=== PATIENT | male | born 1940 | race Hispanic/Latino ===

== ENCOUNTER 2018-06-22 08:04 | Observation (INO) | payer MEDICARE ==
[2018-06-20 11:38] LABS: BASOPHILS % 0.6 % (0.0-1.0); EOSINOPHILS # (AUTO) 0.4 (0.0-0.4); HEMATOCRIT 34.9 % (38.2-49.6); HEMOGLOBIN 10.4 g/dL (14.0-18.0); LYMPHOCYTES # (AUTO) 1.6 (1.0-3.2); LYMPHOCYTES % 22.4 % (18.0-39.1); MEAN CORPUSCULAR HEMOGLOBIN 24.5 pg (28-32); MEAN CORPUSCULAR HGB CONC 29.8 g/dL (31-35); MEAN CORPUSCULAR VOLUME 82.3 fL (81-99); MONOCYTES # (AUTO) 0.7 (0.2-0.8); NEUTROPHILS # (AUTO) 4.4 (2.1-6.9); NEUTROPHILS % 60.6 % (38.7-80.0); PLATELET COUNT 146 x10e3/uL (140-360); RED BLOOD COUNT 4.24 x10e6/uL (4.3-5.7); RED CELL DISTRIBUTION WIDTH 16.9 % (11.7-14.4)
[2018-06-20 11:57] LABS: ANION GAP 15.2 mmol/L (8-16); BLOOD UREA NITROGEN 15 mg/dL (7-26); BUN/CREATININE RATIO 17 (6-25); CALCIUM 9.3 mg/dL (8.4-10.2); CARBON DIOXIDE 22 mmol/L (22-29); CHLORIDE 108 mmol/L (98-107); CREATININE, SERUM 0.89 mg/dL (0.72-1.25); EST GLOMERULAR FILTRATION RATE > 60 ML/MIN (60-); GLUCOSE 95 mg/dL (74-118); POTASSIUM 4.2 mmol/L (3.5-5.1); SODIUM 141 mmol/L (136-145)
--- NOTE | 2018-06-20 12:08 | Diagnostic Imaging Report ---
EXAMINATION: CHEST 2 VIEWS INDICATION: Pre-admit COMPARISON: None FINDINGS: TUBES and LINES: None. LUNGS: Lungs are well inflated. Lungs are clear. There is no evidence of pneumonia or pulmonary edema. PLEURA: No pleural effusion or pneumothorax. HEART AND MEDIASTINUM: The cardiomediastinal silhouette is unremarkable. BONES AND SOFT TISSUES: No acute osseous lesion. Possible healed fracture deformity involving the left lateral tenth rib. Soft tissues are unremarkable. UPPER ABDOMEN: No free air under the diaphragm. There are cholecystectomy clips. IMPRESSION: No acute thoracic radiographic abnormality. Signed by: Dr. Tae Shah MD on 06/20/2018 12:04 PM
[~2018-06-22] VITALS: Ht 167.6 cm; Wt 74.0 kg
[~2018-06-22 08:04] MED LIST: FINASTERIDE5 MG PO; FLOMAX0.4 MG PO
[2018-06-22] MEDS ORDERED: GENTAMICIN 120MG/NS 100ML 100 ML ONE (08:50)
[2018-06-22] MEDS ORDERED: IOPAMIDOL 300MG/ML 50ML INFUS..BTL IV ONE (10:04)
[2018-06-22] MEDS ORDERED: FENTANYL CITRATE/PF 100MCG/2 ML INJ ONE ×2 (11:53→18:23)
[2018-06-22 13:15] VITALS: BP 142/73
[2018-06-22] MEDS ORDERED: ACETAMINOPHEN/CODEINE 300MG - 30MG TAB PO PRN (13:45)
[2018-06-22] MEDS: ONDANSETRON HCL INJ 2 MG/ML VIAL IV PRN ×2 (14:13→20:40)
[2018-06-22] MEDS ORDERED: DEXTROSE 5%/0.45% SOD CHL 1,000 ML IV ONE (14:15)
[2018-06-22 16:00] VITALS: BP 116/69
[2018-06-22] MEDS: TRIMETHOPRIM/SULFAMETHOXAZOLE 160-800 MG TAB PO SCH ×2 (16:56→20:27)
[2018-06-22] MEDS ORDERED: LIDOCAINE HCL 2% LOCAL INJ 5 ML SDV VIAL INJ ONE (19:21)
[2018-06-22] MEDS ORDERED: PROPOFOL IV EMULSION 10 MG/ML 20 ML VIAL ONE (19:21)
[2018-06-22] MEDS ORDERED: ONDANSETRON HCL INJ 2 MG/ML VIAL ONE (19:21)
[2018-06-22] MEDS ORDERED: DEXAMETHASONE SOD PHOS INJ 4 MG/ML VIAL ONE (19:21)
[2018-06-22] MEDS ORDERED: SEVOFLURANE INHAL SOLN 250 ML PEN BTL ONE (19:21)
[2018-06-22 20:00] VITALS: BP 99/58
[2018-06-23] VITALS: BP 97/56
[2018-06-23 04:00] VITALS: BP 91/54
[2018-06-23 06:21] LABS: ANION GAP 13.4 mmol/L (8-16); BLOOD UREA NITROGEN 17 mg/dL (7-26); BUN/CREATININE RATIO 20 (6-25); CARBON DIOXIDE 21 mmol/L (22-29); CHLORIDE 108 mmol/L (98-107); CREATININE, SERUM 0.85 mg/dL (0.72-1.25); EST GLOMERULAR FILTRATION RATE > 60 ML/MIN (60-); GLUCOSE 102 mg/dL (74-118); POTASSIUM 4.4 mmol/L (3.5-5.1); SODIUM 138 mmol/L (136-145)
[2018-06-23 08:03] VITALS: BP 118/67
[2018-06-23] MEDS: TRIMETHOPRIM/SULFAMETHOXAZOLE 160-800 MG TAB PO SCH (08:46)
[2018-06-23 09:55] VITALS: BP 118/67
--- NOTE | 2018-07-04 08:49 | Operative Report ---
DATE OF PROCEDURE: June 22, 2018 PREOPERATIVE DIAGNOSIS: Urinary retention. POSTOPERATIVE DIAGNOSIS: Urinary retention. OPERATIVE PROCEDURES PERFORMED 1. Cystoscopy. 2. Redo transurethral resection of the prostate. ANESTHESIA: General anesthesia. ESTIMATED BLOOD LOSS: 100 mL. INDICATIONS: Mr. Gibbons is a 77-year-old gentleman who previously underwent prior endoscopic procedure in [place] approximately 2 years previously, who presented recently in urinary retention. He now presents for definitive surgical management of this problem. OPERATIVE PROCEDURE IN DETAIL: Patient was brought into the operating room and placed in supine position. After administration of general anesthesia, he was placed in the dorsal lithotomy position and prepped and draped in the usual sterile fashion. Cystourethroscopy was performed using a 22-Albanian cystoscope. The anterior and posterior regions were noted to be normal. The prostate revealed evidence of the prior resection with residual tissue seen on the right side causing obstruction. There was also hyperplasia noted on the left side in the prior resection bed. The bladder was entered with mild difficulty. Upon entrance into the bladder, there were grade 2 to 3 trabeculations noted throughout. The ureteral orifices were noted and produced clear efflux. There were no mucosal lesions identified, but there was mucosal edema noted from the recent [place] balloon. The bladder was left full, and the cystoscope and the sheath were removed. A 26-Albanian resectoscope sheath was then placed in a retrograde fashion, and the Lala resectoscope was used to perform the procedure. The residual tissue seen on the right side was resected beginning at the 11 o'clock position and proceeding in a counter-clockwise fashion down to the 6 o'clock position, starting at the bladder neck and ending at the level of the veru. There was no gross penetration or perforation of the capsule. The chips were removed using the Stereotypes evacuator and sent to pathology for microscopic analysis. Residual tissue seen on the left side was also resected free such that there was a wide-open fossa at the end. Once adequate hemostasis was obtained and the chips removed, the bladder was left full and the resectoscope and sheath were removed. The patient had a brisk urinary flow with coude. A 24-Albanian, 3-way coude catheter was then placed in a retrograde fashion and the balloon inflated with 45 mL of sterile water. Urinary efflux was noted to be blood-tinged. The patient was started on continuous bladder irrigation and the catheter placed to gravity drainage. He was returned to supine position. Anesthesia was reversed. He was transferred to a bed and taken to the postanesthesia care unit in good condition. Of note, the needle and instrument counts were correct at the conclusion of the case. Job#: [id number]
== END 2018-06-23 10:30 | disposition home or self-care (01) ==
LOC: OR 08:04 → PACU V 11:34 → MED/SURG3 13:05
PROVIDERS: ADMIT Urology; ATTEND Urology
DX: N40.1 Benign prostatic hyperplasia with lower urinary tract symptoms (principal); R33.8 Other retention of urine; R31.9 Hematuria, unspecified; F41.9 Anxiety disorder, unspecified; Z87.440 Personal history of urinary (tract) infections; N41.0 Acute prostatitis
CPT/HCPCS: 36415 ×2; 52630; 71046; 80048 ×2; 85025; 88305; 93005; 96361; C1758; G0378 ×2; J1100; J1580; J2001; J2405